=== PATIENT | female | born 1980 | race Two or more races ===

== ENCOUNTER 2019-02-04 21:09 | Emergency (ER) | payer BC ==
[~2019-02-04] VITALS: Ht 160 cm; Wt 45.4 kg
--- NOTE | 2019-02-04 21:20 | NUR ---
ED Nurse Note: pt walked in c/o fever, chills, bodyache x 2 days, pt reports her temp was 104.5 at home, pt recently traveled from [place] and came back 2 days ago. pt took ibuprofen 800mg at 7pm. Pt is AO x 4times, on room air no distress. BRITTNEY seen Pt at bedside.
[2019-02-04 21:33] VITALS: BP 111/75
--- NOTE | 2019-02-04 21:37 | NUR ---
ED Nurse Note: Urine and Influ A&B sample sent to lab.
--- NOTE | 2019-02-04 21:44 | NUR ---
ED Nurse Note: Blood sample sent to lab.
--- NOTE | 2019-02-04 21:52 | Emergency Room Report ---
History of Present Illness General Chief Complaint: Flu Like Symptoms Source: Patient Present Illness [facility] This is a 38-year-old female with no past medical history. She presents with chief complaint of fever and body pain. Onset today. She just got back from [place] 2 days ago. [place] the [place]. She had acute onset of headache, high fever up to 104, body pain and joint pain. She saw her doctor today who diagnosed her with possible influenza versus dengue fever. She was concerned because she was sister and friend who are both in the second trimester. She was sent into be checked out and to rule out influenza. Patient felt better after ibuprofen. No nausea no vomiting. No dysuria or frequency. Allergies: Coded Allergies: No Known Allergies (Unverified , 02/04/19) Patient History Past Medical History: see triage record, old chart reviewed Past Surgical History: none Pertinent Family History: none Social History: Denies: smoking Last Menstrual Period: 01/16/19 Now: No Immunizations: other Reviewed Nursing Documentation: PMH: Agreed; PSxH: Agreed Nursing Documentation-PMH Past Medical History: No Stated History Review of Systems Constitutional: Reports: fever Eye: Denies: eye pain, blurred vision ENT: Denies: ear pain, nose congestion, throat swelling Respiratory: Denies: cough, shortness of breath Cardiovascular: Denies: chest pain, palpitations Gastrointestinal: Denies: abdominal pain, diarrhea, nausea, vomiting Musculoskeletal: Reports: joint pain; Denies: back pain Skin: Denies: rash Neurological: Denies: headache, numbness Endocrine: Denies: increased thirst, increased urine Hematologic/Lymphatic: Denies: easy bruising All Other Systems: negative except mentioned in HPI Physical Exam Vital Signs Date Time Temp Pulse Resp B/P (MAP) Pulse Ox O2 Delivery O2 Flow Rate FiO2 02/04/19 21:13 100.6 76 18 101/68 (79) 98 Room Air vitals with fever Sp02 EP Interpretation: reviewed, normal General Appearance: well appearing, no apparent distress, alert Head: normocephalic, atraumatic Eyes: bilateral eye PERRL, bilateral eye EOMI ENT: hearing grossly normal, normal pharynx Neck: full range of motion, supple, no meningismus Respiratory: chest non-tender, lungs clear, normal breath sounds Cardiovascular #1: regular rate, rhythm, no murmur Gastrointestinal: normal bowel sounds, non tender, no mass, no organomegaly, no bruit, non-distended Musculoskeletal: back normal, gait/station normal, normal range of motion Psychiatric: mood/affect normal Medical Decision Making Diagnostic Impression: Primary Impression: Influenza-like symptoms ER Course Patient with flulike illness. Influenza test negative. It is also likely at this time of the year. She said that she was in an endemic area for dengue fever. Blood test sent but will not be back for a few days. Her platelet count is normal so make it less likely but cannot rule it out. She could also have other illnesses or infection that is endemic to the area that she is in. She is otherwise stable. Will discharge home. Last Vital Signs Date Time Temp Pulse Resp B/P (MAP) Pulse Ox O2 Delivery O2 Flow Rate FiO2 02/04/19 21:33 100.6 80 18 111/75 100 Room Air Status: improved Disposition: HOME, SELF-CARE Condition: Stable Additional Instructions: Continue with ibuprofen. Take your Tamiflu. Follow-up with your doctor in a week for recheck. Return if worse. Percy Pizarro MD Feb 04, 2019 21:52
[2019-02-04 22:01] LABS: BILIRUBIN, URINE NEGATIVE (NEGATIVE); COLOR,URINE PALE YELLOW; GLUCOSE, URINE (UA) NEGATIVE (NEGATIVE); KETONES,URINE NEGATIVE (NEGATIVE); LEUKOCYTE ESTERASE ,URINE NEGATIVE (NEGATIVE); NITRITE,URINE NEGATIVE (NEGATIVE); PH,URINE 8 (4.5-8.0); PROTEIN,URINE NEGATIVE (NEGATIVE); UROBILINOGEN,URINE NORMAL MG/DL (0.0-1.0)
[2019-02-04 22:06] LABS: APPEARANCE,URINE CLEAR
[2019-02-04 22:15] LABS: BASOPHILS % (AUTO) 0.8 % (0.0-2.0); EOSINOPHILS % (AUTO) 0.2 % (0.0-3.0); HEMATOCRIT 37.5 % (37.0-47.0); HEMOGLOBIN 13.4 G/DL (12.0-16.0); LYMPHOCYTES % (AUTO) 12.1 % (20.0-45.0); MEAN CORPUSCULAR VOLUME 90 FL (80-99); MONOCYTES % (AUTO) 7.6 % (1.0-10.0); NEUTROPHILS % (AUTO) 79.4 % (45.0-75.0); PLATELET COUNT 198 K/UL (150-450); RED BLOOD COUNT 4.17 M/UL (4.20-5.40); RED CELL DISTRIBUTION WIDTH 10.1 % (11.6-14.8); WHITE BLOOD COUNT 4.7 K/UL (4.8-10.8)
[2019-02-04 22:23] LABS: ANION GAP 6 mmol/L (5-15); BLOOD UREA NITROGEN 6 mg/dL (7-18); CALCIUM 8.9 MG/DL (8.5-10.1); CARBON DIOXIDE 28 MMOL/L (21-32); CHLORIDE 105 MMOL/L (98-107); CREATININE 0.7 MG/DL (0.55-1.30); POTASSIUM 3.9 MMOL/L (3.5-5.1); SODIUM 139 MMOL/L (136-145)
[2019-02-04 22:28] LABS: ALANINE AMINOTRANSFERASE 16 U/L (12-78); ALBUMIN 3.9 G/DL (3.4-5.0); ALBUMIN/GLOBULIN RATIO 1.2 (1.0-2.7); ALKALINE PHOSPHATASE 102 U/L (46-116); ASPARTATE AMINO TRANSFERASE 27 U/L (15-37); BILIRUBIN,TOTAL 0.4 MG/DL (0.2-1.0)
[2019-02-04 22:56] VITALS: BP 123/68
--- NOTE | 2019-02-04 22:57 | NUR ---
ER DISCHARGE NOTE: Patient is cleared to be discharged per ERMD, pt is aox4, on room air, with stable vital signs. pt was given dc and prescription instructions, pt was able to verbalize understanding, pt id band and iv site removed without complications. pt is able to ambulate with steady gait with friends. pt took all belongings.
[2019-02-04 22:58] VITALS: BP 123/68
== END 2019-02-04 22:59 | disposition home or self-care (01) ==
LOC: EMR 21:54
DX: J11.1 Influenza due to unidentified influenza virus with other respiratory manifestations (principal)
CPT/HCPCS: 36415; 80053; 81001; 81025; 85025; 86710; 99283